=== PATIENT | female | born 1995 | race Caucasian/White ===

== ENCOUNTER 2018-07-13 21:51 | Emergency (ER) | payer MEDICAID ==
[~2018-07-13] VITALS: Ht 157.5 cm; Wt 120.2 kg
[2018-07-13 22:00] VITALS: BP_SYST 117
[2018-07-13 22:58] VITALS: BP_SYST 115
== END 2018-07-13 23:00 | disposition home or self-care (01) ==
LOC: SED 21:51
DX: S67.192A Crushing injury of right middle finger, initial encounter (principal); J45.909 Unspecified asthma, uncomplicated; W22.8XXA Striking against or struck by other objects, initial encounter; Y93.89 Activity, other specified; Y92.89 Other specified places as the place of occurrence of the external cause; Y99.8 Other external cause status
CPT/HCPCS: 73140-TC; 99284

== ENCOUNTER 2021-04-06 22:02 | Emergency (ER) | payer BC, MEDICAID ==
[~2021-04-06] VITALS: Ht 157.5 cm; Wt 132.9 kg
[2021-04-06 22:10] VITALS: BP_SYST 131
[2021-04-07 00:38] LABS: BASOPHILS # (AUTO) 0.1 K/uL (0.0-0.2); BASOPHILS % (AUTO) 0.5 % (0.0-2.0); EOSINOPHILS # (AUTO) 0.4 K/uL (0.0-0.4); HEMATOCRIT 38.3 % (36-48); LYMPHOCYTES % (AUTO) 23.9 % (20.5-51.5); MEAN CORPUSCULAR HEMOGLOBIN 30 pg (27-31); MEAN CORPUSCULAR HGB CONC 34 % (32-36); MEAN CORPUSCULAR VOLUME 89 fL (79.0-98.0); MONOCYTES # (AUTO) 0.7 K/uL (0.0-1.0); MONOCYTES % (AUTO) 5.3 % (1.7-9.3); NEUTROPHILS # (AUTO) 8.3 K/uL (1.8-7.7); NEUTROPHILS % (AUTO) 67.3 % (40.0-70.0); PLATELET COUNT (AUTO) 301 K/uL (130-430); RED BLOOD CELL COUNT(AUTO) 4.32 MIL/uL (4.2-6.2); RED CELL DISTRIBUTION WIDTH 12.9 % (9.0-15.0); WHITE BLOOD COUNT (AUTO) 12.4 K/uL (4.8-10.8)
[2021-04-07 00:49] LABS: CALCIUM 8.8 mg/dL (8.4-11.0); CREATININE 0.84 mg/dL (0.55-1.30); POTASSIUM 3.7 mmol/L (3.5-5.1)
[2021-04-07 01:04] LABS: ALBUMIN 3.3 g/dL (3.4-4.8); TOTAL BILIRUBIN 0.2 mg/dL (0.0-1.0)
[2021-04-07] MEDS ORDERED: KETOROLAC TROMETHAMINE 30 MG VIAL IM ONE (02:00)
[2021-04-07] MEDS ORDERED: NAPROXEN 250 MG TABLET PO ONE (02:30)
[2021-04-07] MEDS ORDERED: NAPR-690 PO (02:41)
[2021-04-07 02:46] VITALS: BP_SYST 126
[2021-04-07 02:52] LABS: BILIRUBIN,URINE NEGATIVE (NEGATIVE); BLOOD, URINE NEGATIVE (NEGATIVE); CLARITY/URINE CLEAR (CLEAR); COLOR,URINE YELLOW (YELLOW); GLUCOSE,URINE NEGATIVE (NEGATIVE); KETONES,URINE NEGATIVE (NEGATIVE); LEUKOCYTE ESTERASE ,URINE NEGATIVE (NEGATIVE); NITRITE, URINE NEGATIVE (NEGATIVE); PROTEIN URINE NEGATIVE (NEGATIVE); UROBILINOGEN,URINE 0.2 (0.2-1.0)
== END 2021-04-07 02:46 | disposition home or self-care (01) ==
LOC: SED 22:02
DX: R10.813 Right lower quadrant abdominal tenderness (principal); R10.814 Left lower quadrant abdominal tenderness; R11.2 Nausea with vomiting, unspecified
CPT/HCPCS: 36415; 74018; 76830-TC; 76857; 80053; 81003; 84703; 85025; 99285